=== PATIENT | female | born 1990 | race Caucasian/White ===

== ENCOUNTER 2023-03-01 14:21 | Outpatient (CLI) | payer BC, SELFPAY ==
--- NOTE | 2023-03-01 17:00 | P.LACCB_ITS ---
Consult Note - Mom Date of Visit Date of visit: 03/31/23 vmware consultant: Violet Ngo Visit Code: Visit Patient's Information Phone number: [phone] : 1 Para: 1 Mother's Medical History: GHTN Delivery Information Delivery type: Vaginal Weeks Gestation: 37.6 Gestational Age: AGA Weight: 3.033 kg Discharge Weight: 2.89 kg Baby's Information Baby's Age at Visit: 17 days Baby's Provider or Clinic: Dr. Bagley Jaundice: No Reason for Consult Reason for Consult: pain with nursing Past Experience Past Experience: No Current Frequency of Day Feedings: every 2 - 3 hours Frequency of Night Feedings: about every 4 hours Both Breasts: No (only on the left side) Suck: strong Latch: fairly wide Length of Time: about 15 minutes Pumping Pumping: Yes (pumps every 3 hrs during the day, 2 - 3 times overnight) Quantity Pumped: about 4 oz total each time Supplementing EMB Supplement: Yes (baby takes 2 - 3 oz with every feeding) Formula Supplement: No Baby Elimination Number of Wet Diapers a Day: every feeding Number of BM a Day: every feeding Breast/Nipple Condition Breast Information: WNL Engorgement: No Maternal Nipple Condition - Left: Common Nipple Maternal Nipple Condition - Right: Common Nipple and Cracking/ Fissures Sore Nipples: Yes Onsite Pre-Feed weight: 3.408 kg Post-Feed weight: 3.43 kg Milk Transferred (mL): 22 Assessments/Interventions Assessments/Interventions: Met with mom and this now 17 day old ex- term AGA baby for consult. Mom reports she had care through [facility] in [place] and delivered at [facility]. Family has moved to [place] so will be receiving care with [facility] Mom reports nursing has been painful since delivery. In the hospital she had a lot of help from the specialists and even used a nipple shield, but it was never completely comfortable. She has since tried to wean baby from the shield but developed a fissure to her right nipple that makes it too painful to nurse on that side. She states baby eats every 2 - 4 hours and at night mom will try to nurse on the left side, but during the day baby is bottle fed. She takes 2 - 3 oz at each feeding, mom is pumping every 3 - 4 hours and gets 4 - 5 oz total each time. Breasts WNL- symmetrical with rounded lower quadrants, intramammary distance < 1.5 inches. Nipples are everted and don't flatten or retract on compression. The left is WNL but the right has a 2 - 3 mm fissure at the base of the nipple where it meets the areola. Baby has gained 69 grams/day since her last visit on 02/27 for her 2 week WCC. Mom denies any caput/cephalohematoma at delivery and states baby has equal ROM when turning her head and moving her extremities. Baby's palate is WNL, her upper frenulum appears to also be WNL. She has a strong suck on a finger and can extend the tongue over the gumline but it's not consistent. There's also some canoeing of the tongue when lateralizing. Her lower frenulum is anterior. Mom reports baby's dad has a tongue tie that was never addressed as a child. Mom latched baby to the left side and it was initially painful. When she was verbally coached to support baby in the cross cradle hold, sandwich her breast, point her nipple to baby's nose, and bring baby quickly to her when she opened wide, she was able to bring baby on more deeply and the latch felt more comfortable. Baby nursed for about 15 minutes, swallowing heard. When mom switched her to the right side and tried the same techniques, she was able to get baby on and the latch looked fairly deep but she had a pain rating of 7/10. No improvement after a few more attempts, mom declined to try in a different position. Baby was weighed and had transferred 22ml so mom gave 3 oz EBM by bottle and practiced paced feeding. She was measured and the 21 mm flanges she is using are a good fit. Plan: 1. Practice nursing as often as mom desires, using the ideas above to get the deepest latch possible. OK to wait until the right side has healed more before she attempts on that side. 2. Obviously keep supplementing, watch baby's cues as she may need less if nursing improves and baby is taking more from the breast. 3. Continue pumping schedule. 4. Mom practiced a tongue exercise and the the guppy stretch while in clinic to hopefully teach baby to more consistently extend her tongue over the gum line and stretch her neck, mouth, and chest muscles. 5. Gave mom instructions on how to care for damaged nipple with saline rinse and cream. 6. Mom declined information on a pediatric dentist today. Will f/u with her by phone on 03/08 to see how things are going.
== END 2023-03-01 14:22 | disposition home or self-care (01) ==
PROVIDERS: Visit Provider Obstetrics & Gynecology
DX: Z39.1 Encounter for care and examination of lactating mother (principal)
CPT/HCPCS: 99211